=== PATIENT | female | born 1955 | race Caucasian/White ===

== ENCOUNTER 2016-09-06 06:27 | Day surgery (SDC) | payer BC ==
[2016-08-30 14:29] VITALS: BMI 26.6
[~2016-09-06 06:27] MED LIST: LIDOCAINE 1% 20 ML VIAL (10MG/ML) FOR IV START INTRADERMA PRN
[2016-09-06] MEDS: PHENYLEPHRINE 10% OPHTH DROPS 5 ML BTL OP ONE ×3 (07:08→07:20)
[2016-09-06] MEDS: CYCLOPENTOLATE 1% OPHTH SOLN 2 ML BTL OP ONE ×3 (07:10→07:22)
[2016-09-06] MEDS: FLURBIPROFEN 0.03% OPHTH DROPS 2.5 ML BTL OP ONE ×3 (07:12→07:24)
[2016-09-06 07:24] VITALS: RESP 16; TEMP 97.3
[2016-09-06] MEDS: LACTATED RINGERS 1,000 ML IV SCH ×2 (07:24→07:29)
[2016-09-06 07:48] LABS: Glucose,Whole Blood 142 mg/dL (75-99)
[2016-09-06] MEDS ORDERED: PROPOFOL 10 MG/ML 20 ML VIAL IV ONE (08:03)
[2016-09-06] MEDS ORDERED: EPINEPHrine (PF) 0.5 ML in BALANCED SALT IRRIG SOLN COMB2 500 ML IRRIGATION ONE (08:11)
[2016-09-06] MEDS ORDERED: NEOMYCIN-POLYMYXIN-DEXAMETH OINT 3.5 GM TUBE LEFT EYE ONE (08:12)
[2016-09-06] MEDS ORDERED: NEOMYCIN-POLYMYXIN-DEXAMETH OINT 3.5 GM TUBE RIGHT EYE ONE (08:12)
[2016-09-06] MEDS ORDERED: HYALURONATE SODIUM INTRAOCULAR 1 EACH SYRINGE (10MG/ML) INTRAOCULA ONE (08:13)
[2016-09-06] MEDS ORDERED: TIMOLOL 0.5% OPHTH SOLN (PF) 0.2 ML DROPERETTE RIGHT EYE ONE (08:14)
[2016-09-06] MEDS ORDERED: TIMOLOL 0.5% OPHTH SOLN (PF) 0.2 ML DROPERETTE LEFT EYE ONE (08:14)
[2016-09-06] MEDS ORDERED: BALANCED SALT IRRIG SOLN COMB2 15 ML IRRIG.SOLN INTRAOCULA ONE (08:15)
[2016-09-06] MEDS ORDERED: TETRACAINE 0.5% OPHTH (PF) DROPS 4 ML BTL RIGHT EYE ONE (08:16)
[2016-09-06] MEDS ORDERED: TETRACAINE 0.5% OPHTH (PF) DROPS 4 ML BTL LEFT EYE ONE (08:16)
--- NOTE | 2016-09-06 08:27 | P.OP ---
Date of Procedure: 09/06/16 Preoperative Diagnosis: Postoperative Diagnosis: Procedure(s) Performed: PREOPERATIVE DIAGNOSIS: Cataract, left eye. POSTOPERATIVE DIAGNOSIS: Cataract, left eye. OPERATION: Phacoemulsification cataract, left eye. DESCRIPTION OF PROCEDURE: The patient was taken to the preoperative holding area. Intravenous Propofol was given so as to bring about adequate sedation. The following mixture was given for local anesthesia: 5 mL of 2% lidocaine, 5 mL of 0.75% Marcaine, and 1 mL of Wydase. Approximately 4 mL was injected in the retrobulbar space of the surgical eye. Additional 1 mL was then directed to the temporal area of the surgical eye. This was performed to allow adequate neurological block of the facial muscles. The patient was revived and then taken into the operative room. The patient was prepped and draped in the usual sterile manner for the operative eye. A lid speculum was put into position. The conjunctiva was resected back from the limbus in the 12 o'clock position. Bleeding was controlled with electrocautery. A #69 blade was then used and a half-thickness scleral incision approximately 1-mm posterior to the limbus was made on bare sclera. This was shelved in the clear cornea using a crescent knife. Next a 15-degree blade was used to make a stab incision at the 3 o' clock position at the corneolimbal interface. Keratome blade was then used and the superior wound was extended into the anterior chamber. Viscoelastic was injected into the anterior chamber and to maintain its form. Next, a cystotome was used and a continuous anterior capsulotomy was made without difficulty. Hydrodissection using a blunt cannula and BSS was performed. Phaco probe was then employed and a groove extending from 12 to 6 o'clock in the lens was created. A Rodriguez wand was used through the stab incision so as to perform a divide and conquer technique. Next an irrigation aspiration probe was utilized and any residual cortex was removed from the eye. Again, viscoelastic was injected into the anterior chamber. An HECTOR [employer] posterior chamber lens implant was placed in the cartridge and injected into the anterior chamber without difficulty. The [employer] hook was utilized to spin the lens into position and this was again performed without any difficulty. The irrigation and aspiration probe was again employed and any residual viscoelastic was removed from the eye. Then BSS was injected into the limbal stab incision and the anterior chamber re-inflated. The conjunctiva was reapproximated using electrocautery. One drop of 0.25% Timoptic was placed over the corneal along with TobraDex ophthalmic ointment. Two sterile patches and a Murray eye shield were taped into position. The patient was transported to the recovery room in stable condition. Implants: Pathology: none sent Condition: stable Disposition: same day Indications for Procedure: Operative Findings: Description of Procedure:
[2016-09-06 08:54] VITALS: BP 134/66; PULSE 77
[2016-09-06] MEDS ORDERED: BUPIVACAINE (PF) 0.75% 5 ML, LIDOCAINE 4% (PF) 5 ML, HYALURONIDASE, HUMAN RECOMB 150 UNIT MISCELLANE ONE ×3 (23:00)
[2016-09-06] MEDS ORDERED: TIMOLOL 0.5% OPHTH SOLN (PF) 0.2 ML DROPERETTE OP ONE (23:00)
[2016-09-06] MEDS ORDERED: GENTAMICIN/PREDNISOL AC OPHTH OINT 3.5GM OPHTHALMIC ONE (23:00)
== END 2016-09-06 09:09 | disposition home or self-care (01) ==
LOC: OR 06:27
PROVIDERS: ATTEND Ophthalmology
DX: H26.9 Unspecified cataract (principal); E11.9 Type 2 diabetes mellitus without complications; Z79.84 Long term (current) use of oral hypoglycemic drugs; K21.9 Gastro-esophageal reflux disease without esophagitis; I10 Essential (primary) hypertension; Z79.899 Other long term (current) drug therapy; Z91.09 Other allergy status, other than to drugs and biological substances
CPT/HCPCS: 66984; V2632; V2788; J2001; J3470; J0171; J2704

== ENCOUNTER → 2018-05-31 | Outpatient (CLI) | payer BC ==
--- NOTE | 2018-05-31 11:50 | XR ---
EXAMINATION TYPE: XR pelvis AP view DATE OF EXAM: 05/31/2018 CLINICAL HISTORY: Follow up study after SI joint fusion. TECHNIQUE: Upright frontal and lateral images of the pelvis are obtained. COMPARISON: None. FINDINGS: There are 3 metallic fixating bridges to the left sacroiliac joint mid aspect. Inferior le ft sacroiliac joint below this is preserved. Scattered inferior pelvic phleboliths are present bilate rally.. There is partial visualization of surgical change in the mid to lower lumbar spine. Hip joint s show mild symmetric axial joint space loss. Right sacroiliac joint is felt within normal limits. IMPRESSION: There is no acute fracture or dislocation in the pelvis.
== END ==
LOC: RADXRMAIN 10:31
PROVIDERS: ATTEND Neurological Surgery
DX: Z09 Encounter for follow-up examination after completed treatment for conditions other than malignant neoplasm (principal); Z98.890 Other specified postprocedural states
CPT/HCPCS: 72170

== ENCOUNTER → 2018-09-27 | Outpatient (CLI) | payer BC | END | disposition home or self-care (01) | LOC: LABWHC1 16:19 | PROVIDERS: ATTEND Internal Medicine Gastroenterology | DX: Z11.59 Encounter for screening for other viral diseases (principal) | CPT/HCPCS: 36415; 86803 ==

== ENCOUNTER 2018-10-26 06:53 | Day surgery (SDC) | payer BC ==
[2018-10-24 13:34] VITALS: BMI 24.2
[~2018-10-26 06:53] MED LIST changes: +LACTATED RINGERS 1,000 ML IV SCH; -LIDOCAINE 1% 20 ML VIAL (10MG/ML) FOR IV START INTRADERMA PRN
[2018-10-26 07:09] VITALS: TEMP 97.8
[2018-10-26 07:16] LABS: Glucose,Whole Blood 122 mg/dL (75-99)
[2018-10-26] MEDS ORDERED: LIDOCAINE 1% 20 ML VIAL (10MG/ML) FOR IV START INTRADERMA ONE (07:17)
[2018-10-26] MEDS ORDERED: LACTATED RINGERS 1,000 ML IV ONE (07:17)
[2018-10-26] MEDS ORDERED: PROPOFOL 10 MG/ML 20 ML VIAL IV ONE (08:02)
--- NOTE | 2018-10-26 08:27 | P.PCN ---
Date of Procedure: 10/26/18 Procedure(s) Performed: BRIEF HISTORY: Patient is a 63-year-old pleasant white female scheduled for an elective colonoscopy as a part of screening for colorectal neoplasia. PROCEDURE PERFORMED: Colonoscopy. PREOPERATIVE DIAGNOSIS: Screening for colon cancer. IV sedation per Anesthesia. PROCEDURE: After informed consent was obtained, the patient, was brought into the endoscopy unit. IV sedation was administered by Anesthesia under continuous monitoring. Digital rectal examination was normal. Initially the Olympus CF-160 flexible video colonoscope was then inserted in the rectum, gradually advanced into the cecum without any difficulty. Careful examination was performed as the scope was gradually being withdrawn. Ileocecal valve and the appendiceal orifice were visualized and appeared normal. Prep was excellent. Mucosa of the cecum, ascending colon, transverse colon, descending colon, sigmoid colon, and rectum appeared normal. Scattered right-sided diverticulosis seen. Retroflexion was performed in the rectum and no lesions were seen. The patient tolerated the procedure well. IMPRESSION: Normal-appearing colon from rectum to cecum with no evidence of colitis or colorectal neoplasia . Scattered diverticulosis. RECOMMENDATIONS: Findings of this examination were discussed with the patient as well as a family. She was advised to be a high-fiber diet and take fiber supplements a regular basis. She can have a repeat screening colonoscopy in 10 years.
[2018-10-26 09:03] VITALS: BP 99/65; PULSE 98; RESP 16
== END 2018-10-26 09:09 | disposition home or self-care (01) ==
LOC: ORWHC2ENDO 06:53
PROVIDERS: ATTEND Internal Medicine Gastroenterology
DX: Z12.11 Encounter for screening for malignant neoplasm of colon (principal); K57.30 Diverticulosis of large intestine without perforation or abscess without bleeding; I10 Essential (primary) hypertension; E78.5 Hyperlipidemia, unspecified; E11.9 Type 2 diabetes mellitus without complications; M19.90 Unspecified osteoarthritis, unspecified site; K21.9 Gastro-esophageal reflux disease without esophagitis; Z79.84 Long term (current) use of oral hypoglycemic drugs; Z79.899 Other long term (current) drug therapy; Z91.09 Other allergy status, other than to drugs and biological substances
CPT/HCPCS: J2704; G0121

== ENCOUNTER → 2018-12-06 | Outpatient (CLI) | payer BC ==
--- NOTE | 2018-12-06 13:11 | XR ---
EXAMINATION TYPE: XR pelvis AP view DATE OF EXAM: 12/06/2018 CLINICAL HISTORY: pain Comparison 05/31/2018 TECHNIQUE: Single view the pelvis is submitted. FINDINGS: No evidence for fracture, dislocation or bony lesion. Joint spaces are well-preserved. S I joints appear symmetric. Stents of postoperative changes lower lumbar spine and left sacroiliac reg ion. IMPRESSION: 1. No acute fracture or dislocation seen. ICD 10 NO FRACTURE, INITIAL EVALUATION
== END | disposition home or self-care (01) ==
LOC: RADXRMAIN 12:33
PROVIDERS: ATTEND Neurological Surgery
DX: M25.9 Joint disorder, unspecified (principal)
CPT/HCPCS: 72170

== ENCOUNTER → 2018-12-20 | Outpatient (CLI) | payer BC ==
[2018-12-20 19:52] LABS: African American GFR (CKD) 90.9 (60.0-200.0)
== END | disposition home or self-care (01) ==
LOC: LABWHC1 14:13
PROVIDERS: ATTEND Neurological Surgery
DX: Z47.89 Encounter for other orthopedic aftercare (principal); Z98.1 Arthrodesis status
CPT/HCPCS: 36415; 82565; 84520

== ENCOUNTER → 2018-12-27 | Outpatient (CLI) | payer BC ==
--- NOTE | 2018-12-27 12:13 | CT ---
EXAMINATION TYPE: CT pelvis wo con DATE OF EXAM: 12/27/2018 COMPARISON: CT scan 12/03/2010 HISTORY: Pain down left leg follow SI joint fusion [address] DLP: 460.4 mGycm Automated exposure control for dose reduction was used. FINDINGS: Postsurgical change involving the lower lumbar spine noted. It does appear to be ossification or calc ification within canal at the level of L5 and L4-L5 which is stable relative the previous exam. This could result in nerve root impingement correlate clinically. Findings have been previously reported d ating back to 2010. Postsurgical changes involving the left SI joint noted. Postsurgical change involving the right pelvi s. Mild hypertrophic change of the acetabulum bilaterally which can be associated with femoral acetab ular impingement. No erosive changes. No acute fracture Bowel gas pattern nonspecific. The uterus has a normal appearance. No free fluid. Calcifications in p saravanan are vascular. Bladder demonstrates no abnormality. Soft tissue ossification along the right glu teal region. IMPRESSION: 1. Extensive postsurgical changes as discussed above. Either ossification or calcification is seen ce ntrally within the spinal canal at L4-5 and L5-S1 which is retrospectively stable dating back to 2010 . Correlate clinically. 2. Mild soft tissue prominence of left ovary recommend pelvic ultrasound.
== END | disposition home or self-care (01) ==
LOC: RADCTMAIN 11:25
PROVIDERS: ATTEND Neurological Surgery
DX: M79.89 Other specified soft tissue disorders (principal); Z98.890 Other specified postprocedural states
CPT/HCPCS: 72192

== ENCOUNTER → 2019-01-01 | Outpatient (CLI) | payer BC ==
--- NOTE | 2019-01-01 14:40 | MR ---
EXAMINATION TYPE: MR lumbar spine wo/w con DATE OF EXAM: 01/01/2019 2:27 PM COMPARISON: 11/08/2011 HISTORY: Low back pain into left leg CONTRAST: The patient was injected with 7 mL intravenous Gadavist gadolinium contrast. Multiplanar, MultiSpin echo imaging of the lumbar spine was performed. L1-L2: Normal disc appearance without desiccation. No herniation, protrusion or disc bulging. No ca nal stenosis is present. Foramina are patent bilaterally. L2-L3: Normal disc appearance without desiccation. No herniation, protrusion or disc bulging. No ca nal stenosis is present. Foramina are patent bilaterally. L3-L4: Postsurgical changes of fusion with lumbar laminectomy. Enhancing granulation tissue noted. No evidence for recurrent or residual disc herniation. No central stenosis. Foramina are patent. L4-L5: Postsurgical changes of fusion with lumbar laminectomy. Enhancing granulation tissue noted. No evidence for recurrent or residual disc herniation. No central stenosis. Foramina are patent. L5-S1: Postsurgical changes of fusion with lumbar laminectomy. Enhancing granulation tissue noted. No evidence for recurrent or residual disc herniation. No central stenosis. Foramina are patent. Lumbar segments are intact. No paraspinal masses are identified. Conus medullaris has a normal appe arance. IMPRESSION: 1. Stable postoperative changes of fusion and lumbar laminectomy extending from L3 through L5 S1. Enh ancing granulation tissue noted without evidence for recurrent or residual disease. No pathologic enh ancement identified.
== END ==
LOC: RADMRIMAIN 13:30
PROVIDERS: ATTEND Neurological Surgery
DX: Z09 Encounter for follow-up examination after completed treatment for conditions other than malignant neoplasm (principal); Z98.1 Arthrodesis status; Z98.890 Other specified postprocedural states; Z90.09 Acquired absence of other part of head and neck
CPT/HCPCS: 72158; A9585

== ENCOUNTER → 2019-01-17 | Outpatient (CLI) | payer BC ==
--- NOTE | 2019-01-18 08:28 | US ---
EXAMINATION TYPE: US pelvis complete transvag DATE OF EXAM: 01/17/2019 COMPARISON: CT 12/27/2018 CLINICAL HISTORY: N83.8 OVARIAN MASS. Possible ovarian mass seen on CT TECHNIQUE: Transvaginal (TV) and Transabdominal (TA) . Transabdominal sonographic images of the pel vis were acquired. Transvaginal sonographic images were medically necessary to better assess the fol lowing anatomy: Uterus and ovaries Date of LMP: in age 50's EXAM MEASUREMENTS: Uterus: 7.7 x 2.8 x 4.6 cm Endometrial Stripe: 0.1 cm Left Ovary: 2.8 x 1.3 x 2.4 cm 1. Uterus: Anteverted wnl 2. Endometrium: wnl 3. Right Ovary: Obscured by overlying bowel gas 4. Left Ovary: wnl 5. Bilateral Adnexa: wnl 6. Posterior cul-de-sac: wnl IMPRESSION: 1. Left ovary is visualized and appears within normal limits. No suspicious mass. 2. Right ovary is obscured by bowel gas.
== END | disposition home or self-care (01) ==
LOC: RADUSWWP 15:58
PROVIDERS: ATTEND Family Medicine
DX: R14.3 Flatulence (principal)
CPT/HCPCS: 76830; 76856

== ENCOUNTER → 2019-03-08 | Outpatient (CLI) | payer MEDICARE, BC ==
--- NOTE | 2019-03-11 11:16 | MM ---
Reason for exam: screening (asymptomatic). Last mammogram was performed 1 year and 7 months ago. History: Patient is postmenopausal. Benign left mammotome panel of the left breast, June 14, 2011. Took hormonal contraceptives for 2 years beginning at age 21. Physical Findings: A clinical breast exam by your physician is recommended on an annual basis and results should be correlated with mammographic findings. MG 3D Screening Mammo W/Cad Bilateral CC and MLO view(s) were taken. Prior study comparison: May 26, 2015, bilateral MG 3d screening mammo w/cad. December 03, 2013, bilateral MG screening mammo w CAD. The breast tissue is heterogeneously dense. This may lower the sensitivity of mammography. Finding: There are typically benign round, grouped/clustered calcifications in the left breast. Previous mammotome biopsy in the left breast. There is no discrete abnormality. ASSESSMENT: Benign, BI-RAD 2 RECOMMENDATION: Routine screening mammogram of both breasts in 1 year.
== END | disposition home or self-care (01) ==
LOC: RADMAMWWP 16:24
PROVIDERS: ATTEND Family Medicine
DX: Z12.31 Encounter for screening mammogram for malignant neoplasm of breast (principal)
CPT/HCPCS: 77063; 77067

== ENCOUNTER → 2019-04-02 | Outpatient (CLI) | payer MEDICARE, BC ==
[2019-04-02 10:48] LABS: Mean Platelet Volume 7.1; Platelet Count 264 k/uL (150-450)
[2019-04-02 11:04] LABS: INR 0.9 (<1.2); Partial Thromboplastin Time 23.5 sec (22.0-30.0); Prothrombin Time 9.9 sec (9.0-12.0)
[2019-04-02 16:39] LABS: African American GFR (CKD) 106.9 (60.0-200.0); Non-African American GFR(CKD) 92.2 (60.0-200.0)
== END | disposition home or self-care (01) ==
LOC: LABWHC1 09:51
PROVIDERS: ATTEND Radiology Vascular & Interventional Radiology
DX: Z01.812 Encounter for preprocedural laboratory examination (principal); Z51.81 Encounter for therapeutic drug level monitoring
CPT/HCPCS: 36415; 82565; 84520; 85049; 85610; 85730

== ENCOUNTER → 2019-09-17 | Outpatient (CLI) | payer MEDICARE, BC ==
--- NOTE | 2019-09-17 11:23 | XR ---
EXAMINATION TYPE: XR lumbar spine 2 or 3V DATE OF EXAM: 09/17/2019 CLINICAL HISTORY: pain TECHNIQUE: Three views of the lumbar spine are submitted. COMPARISON: None. FINDINGS: Postoperative changes of lumbar laminectomy and fusion L3-L5 S1. Pedicular screws are in place. Posto perative alignment is near-anatomic. IMPRESSION: Postoperative changes as noted.
== END | disposition home or self-care (01) ==
LOC: RADXRMAIN 10:07
PROVIDERS: ATTEND Neurological Surgery
DX: M54.16 Radiculopathy, lumbar region (principal); Z98.1 Arthrodesis status
CPT/HCPCS: 72100

== ENCOUNTER → 2020-11-24 | Outpatient (CLI) | payer MEDICARE, BC ==
--- NOTE | 2020-11-24 15:21 | BD ---
EXAMINATION TYPE: Axial Bone Density DATE OF EXAM: 11/24/2020 COMPARISON: NONE CLINICAL HISTORY: Postmenopausal female. Height: 65.5 IN Weight: 167 LBS RISK FACTORS HISTORY OF: Surgery to Spine: L-SPINE When: 11 SURGERIES SINCE 2002 Active: YES Diet low in dairy products/other sources of calcium: YES Postmenopausal woman: AGE 55 MEDICATIONS: Additional Medications: VIT D, HIGH BLOOD PRESSURE MEDS, DIABETES MEDS EXAM MEASUREMENTS: Bone mineral densitometry was performed using the [employer]in[employer] System. PT HAS HAD 11 L-SPINE SURGERIES SINCE 2002 Bone mineral density as measured about the Lumbar spine is: Bone mineral density about the R hip (g/cm2): 0.957 Bone mineral density about the L hip (g/cm2): 0.972 T Score values are as follows: -----R Neck: -0.6 -----L Neck: -0.5 -----R Total: -0.8 -----L Total: -0.2 Bone mineral density BASELINE Bone mineral density about the L Wrist (g/cm2): 0.689 T Score values are as follows: -----Dist. R+U: 0.9 -----Prox. R+U: -0.1 -----Radius total: 0.2 Bone mineral density BASELINE IMPRESSION: Normal (Values between +1 and -1 indicate normal bone mass). Consider repeating this study in 5 year s or sooner if there is some new clinical indication. NOTE: T-SCORE=SD OF THE YOUNG ADULT MEAN.
--- NOTE | 2020-11-26 14:04 | MM ---
Reason for exam: screening (asymptomatic). Last mammogram was performed 1 year and 9 months ago. History: Patient is postmenopausal. Benign left mammotome panel of the left breast, June 14, 2011. Took hormonal contraceptives for 2 years beginning at age 21. Physical Findings: A clinical breast exam by your physician is recommended on an annual basis and results should be correlated with mammographic findings. MG 3D Screening Mammo W/Cad Bilateral CC and MLO view(s) were taken. Prior study comparison: March 08, 2019, bilateral MG 3d screening mammo w/cad. July 28, 2017, mammogram, performed at [facility]. The breast tissue is heterogeneously dense. This may lower the sensitivity of mammography. No significant changes when compared with prior studies. ASSESSMENT: Benign, BI-RAD 2 RECOMMENDATION: Routine screening mammogram of both breasts in 1 year.
== END | disposition home or self-care (01) ==
LOC: RADMAMWWP 14:06
PROVIDERS: ATTEND Family Medicine
DX: Z12.31 Encounter for screening mammogram for malignant neoplasm of breast (principal); Z78.0 Asymptomatic menopausal state
CPT/HCPCS: 77063; 77067; 77080

== ENCOUNTER → 2021-12-02 | Outpatient (CLI) | payer MEDICARE, BC ==
--- NOTE | 2021-12-03 17:48 | MM ---
Reason for Exam: Screening (asymptomatic). Last screening mammogram was performed 12 month(s) ago. Patient History: Menarche at age 14. First Full-Term at age 18. Postmenopausal. Hormonal Contraceptives, starting at age 21 for 2 years. 06/14/2011, Benign Core Biopsy on the left side. Risk Values: Ibeth 5 year model risk: 1.3%. NCI Lifetime model risk: 4.7%. Prior Study Comparison: 07/28/2017 Screening Mammogram, [facility]. 03/08/2019 Bilateral Screening Mammogram, [facility]. 11/24/2020 Bilateral Screening Mammogram, [facility]. Tissue Density: The breast tissue is heterogeneously dense. This may lower the sensitivity of mammography. Findings: Analyzed By CAD. Microclip left breast from prior biopsy. Adjacent coarse microcalcifications are unchanged. Asymmetric density far posterior lateral left cc view remains unchanged. No significant change from prior exams. Overall Assessment: Benign, BI-RAD 2 Management: Screening Mammogram of both breasts in 1 year. 1. Patient should continue monthly self breast exams. 2. A clinical breast exam by your physician is recommended on an annual basis. 3. This exam should not preclude additional follow-up of suspicious palpable abnormalities. Electronically signed and approved by: Giselle Ott M.D. Radiologist
== END | disposition home or self-care (01) ==
LOC: RADMAMWWP 16:22
PROVIDERS: ATTEND Family Medicine
DX: Z12.31 Encounter for screening mammogram for malignant neoplasm of breast (principal); Z78.0 Asymptomatic menopausal state
CPT/HCPCS: 77063; 77067

== ENCOUNTER → 2022-12-27 | Outpatient (CLI) | payer MEDICARE, BC ==
--- NOTE | 2022-12-29 15:38 | MM ---
Reason for Exam: Screening (asymptomatic). Last mammogram was performed 1 year(s) and 1 month(s) ago. Patient History: Menarche at age 14. First Full-Term at age 18. Postmenopausal. Hormonal Contraceptives, starting at age 21 for 2 years. 06/14/2011, Benign Core Biopsy on the left side. Risk Values: Ibeth 5 year model risk: 1.3%. NCI Lifetime model risk: 4.5%. Prior Study Comparison: 03/08/2019 Bilateral Screening Mammogram, [facility]. 11/24/2020 Bilateral Screening Mammogram, [facility]. 12/02/2021 Bilateral MG 3D screening mammo w/cad, [facility]. Tissue Density: The breast tissue is heterogeneously dense. This may lower the sensitivity of mammography. Findings: Analyzed By CAD. Pattern appears stable. Surgical markers vascular calcifications in the bilateral breasts. Coarse calcifications are within the left breast. No suspicious groups of microcalcifications, spiculated or lobular masses, architectural distortion or other secondary signs of malignancy are mammographically apparent. Overall Assessment: Benign, BI-RAD 2 Management: Screening Mammogram of both breasts in 1 year. A negative mammogram report should not preclude additional follow up of suspicious palpable abnormalities. Patient should continue monthly self breast exam. A clinical breast exam by your physician is recommended on an annual basis and results should be correlated with mammographic findings. Electronically signed and approved by: Misha Nunez D.O. Radiologis
== END | disposition home or self-care (01) ==
LOC: RADMAMWWP 09:36
PROVIDERS: ATTEND Family Medicine
DX: Z12.31 Encounter for screening mammogram for malignant neoplasm of breast (principal); Z78.0 Asymptomatic menopausal state
CPT/HCPCS: 77063; 77067

== ENCOUNTER 2024-08-31 14:12 | Emergency (ER) | payer MEDICARE, BC ==
[2024-08-31 14:19] VITALS: RESP 20
--- NOTE | 2024-08-31 14:30 | ED ---
General Adult HPI - General Chief complaint: Head Injury Stated complaint: Fall Time Seen by Provider: 08/31/24 14:20 Source: patient, RN notes reviewed Mode of arrival: ambulatory Limitations: no limitations - History of Present Illness Initial comments: This is a 69-year-old female presenting to the emergency department after a fall. 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 She denies loss of consciousness. Patient is complaining of pain mildly to the left orbit and of the bilateral hands and wrists. Currently is denying a headache, neck pain or other pain. Denies blood thinners. - Related Data Home Medications Medication Instructions Recorded Confirmed Irbesartan/Hydrochlorothiazide 1 each PO QAM 11/17/14 10/24/18 [Avalide 150-12.5 mg Tablet] metFORMIN HCL 1,000 mg PO BID 11/17/14 10/24/18 Pioglitazone [Actos] 30 mg PO DAILY 08/30/16 10/24/18 Atorvastatin [Lipitor] 10 mg PO HS 09/06/16 10/24/18 Acetaminophen [Tylenol Arthritis] 1,300 mg PO Q6H PRN 10/24/18 10/24/18 Cetirizine HCl [Zyrtec] 10 mg PO DAILY 10/24/18 10/24/18 Semaglutide [Ozempic] 1 mg SQ BARRERA 10/24/18 10/24/18 Allergies Allergy/AdvReac Type Severity Reaction Status Date / Time adhesive Allergy blisters Verified 10/24/18 12:43 skin adhesive tape Allergy Itching,BURNING Verified 10/24/18 12:43 , SKIN BLISTERS Review of Systems ROS Statement: Those systems with pertinent positive or pertinent negative responses have been documented in the HPI. ROS Other: All systems not noted in ROS Statement are negative. Past Medical History Past Medical History: Diabetes Mellitus, Eye Disorder, GERD/Reflux, Hy perlipidemia, Hypertension, Osteoarthritis (OA) Additional Past Medical History / Comment(s): varicose veins, chronic back pain, History of Any Multi-Drug Resistant Organisms: None Reported Past Surgical History: Back Surgery, Orthopedic Surgery Additional Past Surgical History / Comment(s): lower back surg x10 ,neck surg x 2, lt thumb joint surg,BILAT SHOULDER SX, COLONOSCOPY. BILATERAL CARPAL TUNNEL RELEASE,CATARACT SURGERY LEFT EYE Past Anesthesia/Blood Transfusion Reactions: No Reported Reaction Past Psychological History: No Psychological Hx Reported Past Alcohol Use History: Rare Past Drug Use History: None Reported - Past Family History Father Family Medical History: Cancer, Diabetes Mellitus Additional Family Medical History / Comment(s): bladder Mother Family Medical History: Dementia, Diabetes Mellitus, Hypertension General Exam Limitations: no limitations Eye exam: Present: periorbital swelling, periorbital tenderness (left periorbital tenderness and ecchymosis) Neck exam: Present: normal inspection. Absent: tenderness, meningismus, lymphadenopathy Respiratory exam: Present: normal lung sounds bilaterally. Absent: respiratory distress, wheezes, rales, rhonchi, stridor Cardiovascular Exam: Present: regular rate, normal rhythm, normal heart sounds. Absent: systolic murmur, diastolic murmur, rubs, gallop, clicks GI/Abdominal exam: Present: soft, normal bowel sounds. Absent: distended, tenderness, guarding, rebound, rigid Left Hand Wrist exam: Present: tenderness, swelling (lateral hand with swelling and ecchymosis) Neuro motor exam: Present: wrist extension intact, thumb opposition intact, thumb IP flexion intact Vascular: Present: normal capillary refill, radial pulse (2+). Absent: vascular compromise Back exam: Present: normal inspection Course Vital Signs 08/31/24 08/31/24 14:17 15:04 Temperature 98.4 F Pulse Rate 94 84 Respiratory 20 20 Rate Blood Pressure 150/84 157/83 O2 Sat by Pulse 98 98 Oximetry Medical Decision Making - Medical Decision Making Was pt. sent in by a medical professional or institution (, PA, ELECTRICAL EQUIPMENT TECHNICIAN, urgent care, hospital, or jail...) When possible be specific @ -No Did you speak to anyone other than the patient for history (EMS, parent, family, police, friend...)? What history was obtained from this source @ -No Did you review nursing and triage notes (agree or disagree)? Why? @ -I reviewed and agree with nursing and triage notes Were old charts reviewed (outside hosp., previous admission, EMS record, old EKG, old radiological studies, urgent care reports/EKG's, jail records)? Report findings @ -No old charts were reviewed Differential Diagnosis (chest pain, altered mental status, abdominal pain women, abdominal pain men, vaginal bleeding, weakness, fever, dyspnea, syncope, headache, dizziness, GI bleed, back pain, seizure, CVA, palpatations, mental health, musculoskeletal)? @ -facial fracture, wrist fracture, wrist sprain, periorbital ecchymosis, forehead hematoma, this list is not all inclusive EKG interpreted by me (3pts min.). @ -none X-rays interpreted by me (1pt min.). @ -X-ray of bilateral hands is unremarkable. CT interpreted by me (1pt min.). @ -CT of the brain and C-spine facial bones reveals no evidence of acute intracranial hemorrhage, cervical spine fracture or facial bone fracture. U/S interpreted by me (1pt. min.). @ -None done What testing was considered but not performed or refused? (CT, X-rays, U/S, labs)? Why? @ -None What meds were considered but not given or refused? Why? @ -None Did you discuss the management of the patient with other professionals (professionals i.e. , PA, ELECTRICAL EQUIPMENT TECHNICIAN, lab, RT, psych nurse, hospital social worker, pipelines supervisor, teacher, booking officer, case finisher)? Give summary @ -No Was smoking cessation discussed for >3mins.? @ -No Was critical care preformed (if so, how long)? @ -No Were there social determinants of health that impacted care today? How? (Homelessness, low income, unemployed, alcoholism, drug addiction, transportation, low edu. Level, literacy, decrease access to med. care, [facility], rehab)? @ -No Was there de-escalation of care discussed even if they declined (Discuss DNR or withdrawal of care, Hospice)? DNR status @ -No What co-morbidities impacted this encounter? (DM, HTN, Smoking, COPD, CAD, Cancer, CVA, ARF, Chemo, Hep., AIDS, mental health diagnosis, sleep apnea, morbid obesity)? @ -None Was patient admitted / discharged? Hospital course, mention meds given and route, prescriptions, significant lab abnormalities, going to OR and other pertinent info. @ -Discharge. 69-year-old female presenting after fall. Patient noted to have left-sided periorbital ecchymosis and swelling. She was offered pain medication however is declined. CT imaging and x-rays are unremarkable. Patient stable for discharge. Recommend she continue supportive treatment with Tylenol, Motrin, icing affected areas. Case discussed with Dr. nagy Undiagnosed new problem with uncertain prognosis? @ -No Drug Therapy requiring intensive monitoring for toxicity (Heparin, Nitro, Insulin, Cardizem)? @ -No Were any procedures done? @ -No Diagnosis/symptom? @ -fall, forehead hematoma Acute, or Chronic, or Acute on Chronic? @ -acute Uncomplicated (without systemic symptoms) or Complicated (systemic symptoms)? @ -uncomplicated Side effects of treatment? @ -No Exacerbation, Progression, or Severe Exacerbation? @ -No Poses a threat to life or bodily function? How? (Chest pain, [place], [place], pneumonia, PE, COPD, DKA, ARF, appy, cholecystitis, CVA, Diverticulitis, Homicidal, Suicidal, threat to staff... and all critical care pts) @ -No Disposition Clinical Impression: Fall, Hematoma Disposition: HOME SELF-CARE Condition: Good Instructions (If sedation given, give patient instructions): Hematoma (ED) Additional Instructions: Please return to the Emergency Department if symptoms worsen or any other concerns. Is patient prescribed a controlled substance at d/c from ED?: No Referrals: Tiana Chandra DO [Primary Care Provider] - 1-2 days Time of Disposition: 15:45
--- NOTE | 2024-08-31 15:17 | CT ---
EXAMINATION TYPE: CT brain cspine wo con DATE OF EXAM: 08/31/2024 3:00 PM COMPARISON: None. CLINICAL INDICATION: Female, 69 years old with history of fall, pain; trip fall hitting cement floor. swelling bruising to left orbit. TECHNIQUE: Brain: Multiple axial CT images of the brain were obtained without IV contrast. Cspine: Axial CT images from the skull base to the inferior aspect of T2 we obtained without intraven ous contrast. Coronal and sagittal reformatted images were also reviewed. . CT DLP: 994.4 combined mGycm, Automated exposure control for dose reduction was used. FINDINGS: Brain: Extra-axial spaces: No abnormal extra-axial fluid collections. Ventricular system: Within normal limits Cerebral parenchyma: No acute intraparenchymal hemorrhage or mass effect. The dickerson-white junction is well differentiated. Scattered hypoattenuating areas are seen within the white matter. Cerebellum: Unremarkable. Mass effect: No evidence of midline shift. Intracranial vasculature: unremarkable Soft tissues: Normal. Calvarium/osseous structures: No depressed skull fracture. Paranasal sinuses and mastoid air cells: Mucosal thickening along the floor the maxillary sinuses. Visualized orbits: Previous left-sided cataract lens extraction. Cervical spine: Fracture: None. Osseous structures: Anterior cervical spinal fusion hardware visualized spanning C4-C7 with C4-C5, C5 -C6 and C6-C7 intervertebral disc spacers. No periprosthetic lucency or acute fracture. Disc ossified complex noted at C3-C4. Vertebral alignment: Within normal limits. Spinal canal/Neural Foramina: No evidence of significant spinal canal narrowing. No evidence for sign ificant neural foraminal stenosis. Neck soft tissues: Prevertebral soft tissues are within normal limits. Other: The airway is patent. The lung apices are clear. IMPRESSION: 1. Left forehead/scalp hematoma without evidence of an acute intracranial process. 2. No acute fracture or traumatic subluxation of the cervical spine. [facility], , 08/31/2024 3:15 PM
--- NOTE | 2024-08-31 15:23 | CT ---
EXAMINATION TYPE: CT facial bones wo con DATE OF EXAM: 08/31/2024 3:00 PM COMPARISON: None. CLINICAL INDICATION: Female, 69 years old with history of fall, left sided periorbital swelling and p ain; PHH, trip fall hitting cement floor. swelling bruising to left orbit TECHNIQUE: Multiple unenhanced axial CT images were obtained of the facial bones soft tissue and bone windows. Coronal, axial and sagittal reformatted images were also provided in soft tissue and bone windows and submitted for interpretation. Additional 3-D reformatted images were obtained on a [email or web address] workstation. . CT DLP: 994.4 combined mGycm, Automated exposure control for dose reduction was used. FINDINGS: There is no evidence of fracture, subluxation, or dislocation. Left fore head/scalp hematoma/contusio n. The orbital contents are unremarkable. No evidence of globe rupture. Pterygoid processes are intac t. The temporal-mandibular joints appear symmetric. The visualized portion of the paranasal sinuses d emonstrate mucosal thickening along the floor of the maxillary sinuses. IMPRESSION: No evidence of a facial bone fracture. [facility], , 08/31/2024 3:21 PM
--- NOTE | 2024-08-31 15:41 | XR ---
EXAMINATION TYPE: XR hand complete bilateral DATE OF EXAM: 08/31/2024 3:28 PM COMPARISON: None available. CLINICAL INDICATION: Female, 69 years old with history of fall, left hand pain, right wrist pain; PHH , pain TECHNIQUE: XR hand complete bilateral Frontal, lateral and oblique views were obtained. FINDINGS: No acute fracture or dislocation. Carpal alignment appears grossly maintained. Osseous stru ctures diffusely demineralized. Likely previous trapezium resection bilaterally with abnormal appeara nce of the first carpal metacarpal joints. Interphalangeal degenerative osteophytic changes, most pro nounced at the first digit interphalangeal joints. IMPRESSION: 1. No acute osseous pathology. 2. Multifocal osteoarthrosis throughout the joints of the hand. [facility], , 08/31/2024 3:39 PM
[2024-08-31 16:10] VITALS: BP 155/89; PULSE 86; TEMP 98
== END 2024-08-31 16:11 | disposition home or self-care (01) ==
LOC: EC 14:12
DX: S00.03XA Contusion of scalp, initial encounter (principal); Z91.048 Other nonmedicinal substance allergy status; W18.30XA Fall on same level, unspecified, initial encounter; Y92.511 Restaurant or cafe as the place of occurrence of the external cause
CPT/HCPCS: 70450; 70486; 72125; 99284